=== PATIENT | male | born 1995 | race Caucasian/White ===

== ENCOUNTER 2016-07-24 22:38 | Emergency (ER) | payer OTHER ==
[2016-07-25 01:13] VITALS: BP 138/76
== END 2016-07-25 01:13 | disposition home or self-care (01) ==
LOC: ED 22:38
DX: M54.6 Pain in thoracic spine (principal); R20.2 Paresthesia of skin; R05 Cough
CPT/HCPCS: J7613; J7644

== ENCOUNTER 2016-08-16 00:26 | Emergency (ER) | payer OTHER ==
[2016-08-16 01:38] LABS: BASOPHIL % 0.5 % (0-2); PLATELET COUNT 282 x10^3mcL (130-400); RED CELL DISTRIBUTION WIDTH 12.8 % (11.5-14.5)
[2016-08-16 02:00] LABS: CALCIUM 8.9 mg/dL (8.5-10.1); CARBON DIOXIDE 26.7 mmol/L (21-32); CHLORIDE SERUM 102 mmol/L (98-107); GFR1 > 60 mL/min; GLUCOSE SERUM 107 mg/dL (74-106); POTASSIUM SERUM 3.4 mmol/L (3.5-5.1); SODIUM SERUM 139 mmol/L (136-145)
[2016-08-16 02:04] LABS: ALKALINE PHOSPHATASE 103 U/L (46-116); ALT/SGPT 34 U/L (16-63); AST/SGOT 20 U/L (15-37); BILIRUBIN TOTAL 0.3 mg/dL (0.20-1.00); LIPASE 261 IU/L (73-393); TOTAL PROTEIN, SERUM 8.2 g/dL (6.4-8.2)
[2016-08-16 02:59] LABS: AMPHETAMINE QUAL UR NONE DETECTED (NEG <=1000)
[2016-08-16 04:31] VITALS: BP 118/64
== END 2016-08-16 04:31 | disposition home or self-care (01) ==
LOC: ED 00:26
PROVIDERS: Emergency Medicine
DX: K21.9 Gastro-esophageal reflux disease without esophagitis (principal); E87.6 Hypokalemia
CPT/HCPCS: 80307; 83880; J2405; J3490; Q0092

== ENCOUNTER 2016-09-11 07:47 | Emergency (ER) | payer OTHER ==
[~2016-09-11] VITALS: Ht 170.2 cm; Wt 81.2 kg
[2016-09-11 08:23] LABS: BASOPHIL % 0.6 % (0-2); PLATELET COUNT 253 x10^3mcL (130-400); RED CELL DISTRIBUTION WIDTH 12.7 % (11.5-14.5)
[2016-09-11 08:32] LABS: CALCIUM 8.9 mg/dL (8.5-10.1); CARBON DIOXIDE 29.3 mmol/L (21-32); CHLORIDE SERUM 104 mmol/L (98-107); GFR1 > 60 mL/min; GLUCOSE SERUM 95 mg/dL (74-106); POTASSIUM SERUM 3.8 mmol/L (3.5-5.1); SODIUM SERUM 140 mmol/L (136-145)
[2016-09-11 08:36] LABS: ALBUMIN 3.9 g/dL (3.4-5.0); ALKALINE PHOSPHATASE 96 U/L (46-116); ALT/SGPT 31 U/L (16-63); AST/SGOT 20 U/L (15-37); BILIRUBIN TOTAL 0.25 mg/dL (0.20-1.00); LIPASE 242 IU/L (73-393); TOTAL PROTEIN, SERUM 8.1 g/dL (6.4-8.2)
[2016-09-11 09:32] VITALS: BP 107/64
== END 2016-09-11 09:32 | disposition home or self-care (01) ==
LOC: ED 07:47
PROVIDERS: Emergency Medicine
DX: R07.89 Other chest pain (principal); R11.10 Vomiting, unspecified
CPT/HCPCS: J2060; J2405; J7030; Q0092

== ENCOUNTER 2016-10-02 23:12 | Emergency (ER) | payer OTHER ==
[2016-10-03 00:11] LABS: BASOPHIL % 0.4 % (0-2); PLATELET COUNT 275 x10^3mcL (130-400); RED CELL DISTRIBUTION WIDTH 12.9 % (11.5-14.5)
[2016-10-03 00:25] LABS: CALCIUM 8.8 mg/dL (8.5-10.1); CARBON DIOXIDE 30.4 mmol/L (21-32); CHLORIDE SERUM 103 mmol/L (98-107); GFR1 > 60 mL/min; GLUCOSE SERUM 114 mg/dL (74-106); POTASSIUM SERUM 3.4 mmol/L (3.5-5.1); SODIUM SERUM 139 mmol/L (136-145)
[2016-10-03 00:30] LABS: ALBUMIN 3.9 g/dL (3.4-5.0); ALKALINE PHOSPHATASE 96 U/L (46-116); ALT/SGPT 56 U/L (16-63); AST/SGOT 24 U/L (15-37); BILIRUBIN TOTAL 0.2 mg/dL (0.20-1.00); CHOLESTEROL 165 mg/dL (<200); PHOSPHOROUS 3.2 mg/dL (2.5-4.9); TOTAL PROTEIN, SERUM 7.9 g/dL (6.4-8.2); URIC ACID 5.8 mg/dL (3.5-7.2)
[2016-10-03 00:31] LABS: HDL CHOLESTEROL 34 mg/dL (40-60)
[2016-10-03 01:53] VITALS: BP 118/72
== END 2016-10-02 23:26 | disposition home or self-care (01) ==
LOC: ED 23:12
PROVIDERS: Emergency Medicine
DX: F41.9 Anxiety disorder, unspecified (principal); K64.9 Unspecified hemorrhoids; K59.00 Constipation, unspecified; R07.89 Other chest pain
CPT/HCPCS: 36415; 83880; Q0092

== ENCOUNTER 2016-11-05 23:33 | Emergency (ER) | payer OTHER ==
[2016-11-06 00:13] VITALS: BP 121/66
== END 2016-11-06 00:13 | disposition home or self-care (01) ==
LOC: ED 23:33
DX: R10.9 Unspecified abdominal pain (principal); R11.10 Vomiting, unspecified; R19.7 Diarrhea, unspecified; K92.1 Melena

== ENCOUNTER 2016-12-06 22:54 | Emergency (ER) | payer OTHER ==
[2016-12-07 00:25] LABS: BASOPHIL % 0.3 % (0-2); PLATELET COUNT 243 x10^3mcL (130-400)
[2016-12-07 00:42] LABS: CALCIUM 9.1 mg/dL (8.5-10.1); CARBON DIOXIDE 28.8 mmol/L (21-32); CHLORIDE SERUM 101 mmol/L (98-107); GFR1 > 60 mL/min; GLUCOSE SERUM 87 mg/dL (74-106); POTASSIUM SERUM 3.5 mmol/L (3.5-5.1); SODIUM SERUM 135 mmol/L (136-145)
[2016-12-07 00:47] LABS: ALKALINE PHOSPHATASE 90 U/L (46-116); ALT/SGPT 26 U/L (16-63); AST/SGOT 19 U/L (15-37); BILIRUBIN TOTAL 0.2 mg/dL (0.20-1.00); TOTAL PROTEIN, SERUM 8.3 g/dL (6.4-8.2)
[2016-12-07 00:53] LABS: CK-MB < 0.5 ng/mL (0-3.6); CREATINE KINASE 90 U/L (39-308)
[2016-12-07 01:17] VITALS: BP 116/53
== END 2016-12-07 01:17 | disposition home or self-care (01) ==
LOC: ED 22:54
PROVIDERS: Emergency Medicine
DX: R55 Syncope and collapse (principal); R51 Headache; R10.9 Unspecified abdominal pain; R11.10 Vomiting, unspecified
CPT/HCPCS: 36415; Q0092; Q0162

== ENCOUNTER 2017-03-15 03:29 | Emergency (ER) | payer OTHER ==
[2017-03-15 04:46] LABS: BASOPHIL % 0.5 % (0-2); PLATELET COUNT 264 x10^3mcL (130-400); RED CELL DISTRIBUTION WIDTH 12.9 % (11.5-14.5)
[2017-03-15 05:00] LABS: CALCIUM 8.9 mg/dL (8.5-10.1); CARBON DIOXIDE 27.9 mmol/L (21-32); CHLORIDE SERUM 102 mmol/L (98-107); CREATININE SERUM 0.9 mg/dL (0.7-1.3); GFR1 > 60 mL/min; GLUCOSE SERUM 90 mg/dL (74-106); POTASSIUM SERUM 3.5 mmol/L (3.5-5.1); SODIUM SERUM 140 mmol/L (136-145)
[2017-03-15 05:05] LABS: ALBUMIN 3.7 g/dL (3.4-5.0); ALKALINE PHOSPHATASE 86 U/L (46-116); ALT/SGPT 27 U/L (16-63); AST/SGOT 22 U/L (15-37); BILIRUBIN TOTAL 0.4 mg/dL (0.20-1.00); LIPASE 255 IU/L (73-393); TOTAL PROTEIN, SERUM 7.9 g/dL (6.4-8.2)
[2017-03-15 05:11] LABS: microscopic required? NO
[2017-03-15 05:33] LABS: urine erythrocyte NEGATIVE (NEGATIVE)
[2017-03-15 06:45] VITALS: BP 121/73
== END 2017-03-15 06:45 | disposition home or self-care (01) ==
LOC: ED 03:29
PROVIDERS: Emergency Medicine
DX: R07.9 Chest pain, unspecified (principal); R10.12 Left upper quadrant pain; R11.10 Vomiting, unspecified
CPT/HCPCS: 36415

== ENCOUNTER 2017-04-29 23:05 | Emergency (ER) | payer OTHER ==
[~2017-04-29] VITALS: Ht 170.2 cm; Wt 82.5 kg
[2017-04-29 23:36] VITALS: Ht 170.2 cm; Wt 82.5 kg
[2017-04-30 01:08] VITALS: BP 109/68
== END 2017-04-30 01:08 | disposition home or self-care (01) ==
LOC: ED 23:05
DX: R07.89 Other chest pain (principal); F41.9 Anxiety disorder, unspecified
CPT/HCPCS: Q0092

== ENCOUNTER 2017-07-06 00:52 | Emergency (ER) | payer OTHER ==
[~2017-07-06] VITALS: Ht 170.2 cm; Wt 83.9 kg
[2017-07-06 00:54] VITALS: Ht 170.2 cm; Wt 83.9 kg
[2017-07-06 03:59] LABS: BASOPHIL % 0.5 % (0-2); PLATELET COUNT 255 x10^3mcL (130-400); RED CELL DISTRIBUTION WIDTH 13.2 % (11.5-14.5)
[2017-07-06 04:08] LABS: CALCIUM 8.8 mg/dL (8.5-10.1); CHLORIDE SERUM 104 mmol/L (98-107); CREATININE SERUM 0.9 mg/dL (0.7-1.3); GFR1 > 60 mL/min; GLUCOSE SERUM 96 mg/dL (74-106); POTASSIUM SERUM 3.5 mmol/L (3.5-5.1); SODIUM SERUM 137 mmol/L (136-145)
[2017-07-06 04:13] LABS: ALBUMIN 3.7 g/dL (3.4-5.0); ALKALINE PHOSPHATASE 87 U/L (46-116); ALT/SGPT 46 U/L (16-63); AST/SGOT 24 U/L (15-37); BILIRUBIN TOTAL 0.2 mg/dL (0.20-1.00); MAGNESIUM 2.1 mg/dL (1.8-2.4); TOTAL PROTEIN, SERUM 7.6 g/dL (6.4-8.2)
[2017-07-06 04:47] VITALS: BP 121/89
== END 2017-07-06 04:47 | disposition home or self-care (01) ==
LOC: ED 00:52
PROVIDERS: Emergency Medicine
DX: R07.89 Other chest pain (principal); M62.838 Other muscle spasm
CPT/HCPCS: 36415

== ENCOUNTER 2017-07-29 16:09 | Emergency (ER) | payer OTHER ==
[~2017-07-29] VITALS: Ht 170.2 cm; Wt 83.9 kg
[2017-07-29 16:17] VITALS: Ht 170.2 cm; Wt 83.9 kg
[2017-07-29 17:00] LABS: BASOPHIL % 0.3 % (0-2); PLATELET COUNT 246 x10^3mcL (130-400)
[2017-07-29 17:14] LABS: AMPHETAMINE QUAL UR NONE DETECTED (NEG <=1000)
[2017-07-29 18:20] LABS: CALCIUM 8.7 mg/dL (8.5-10.1); CARBON DIOXIDE 29.8 mmol/L (21-32); CHLORIDE SERUM 102 mmol/L (98-107); CREATININE SERUM 0.9 mg/dL (0.7-1.3); GFR1 > 60 mL/min; GLUCOSE SERUM 77 mg/dL (74-106); POTASSIUM SERUM 3.7 mmol/L (3.5-5.1); SODIUM SERUM 138 mmol/L (136-145)
[2017-07-29 18:25] LABS: ALBUMIN 3.9 g/dL (3.4-5.0); ALKALINE PHOSPHATASE 87 U/L (46-116); ALT/SGPT 49 U/L (16-63); AST/SGOT 29 U/L (15-37); BILIRUBIN TOTAL 0.3 mg/dL (0.20-1.00); CHOLESTEROL 167 mg/dL (<200)
[2017-07-29 19:30] VITALS: BP 125/77
== END 2017-07-29 19:30 | disposition home or self-care (01) ==
LOC: ED 16:09
PROVIDERS: Specialist
DX: R41.82 Altered mental status, unspecified (principal); R51 Headache; R11.10 Vomiting, unspecified
CPT/HCPCS: 36415; 83880; G0480

== ENCOUNTER 2017-11-15 18:18 | Emergency (ER) | payer OTHER ==
[~2017-11-15] VITALS: Ht 170.2 cm; Wt 79.4 kg
[2017-11-15 18:37] VITALS: Ht 170.2 cm; Wt 79.4 kg
[2017-11-15 20:24] VITALS: BP 124/64
== END 2017-11-15 20:24 | disposition home or self-care (01) ==
LOC: ED 18:18
DX: K58.0 Irritable bowel syndrome with diarrhea (principal); K21.9 Gastro-esophageal reflux disease without esophagitis; R03.0 Elevated blood-pressure reading, without diagnosis of hypertension

== ENCOUNTER 2019-09-21 00:15 | Emergency (ER) | payer OTHER ==
[~2019-09-21] VITALS: Ht 172.7 cm; Wt 90.0 kg
[2019-09-21 00:27] VITALS: Ht 172.7 cm; Wt 90.0 kg
[2019-09-21 01:28] LABS: AMPHETAMINE QUAL UR NONE DETECTED (See below)
[2019-09-21 01:43] LABS: CALCIUM 8.8 mg/dL (8.5-10.1); CARBON DIOXIDE 30.2 mmol/L (21-32); CHLORIDE SERUM 103 mmol/L (98-107); GFR1 > 60 mL/min; GLUCOSE SERUM 89 mg/dL (74-106); POTASSIUM SERUM 3.5 mmol/L (3.5-5.1); SODIUM SERUM 140 mmol/L (136-145)
[2019-09-21 01:48] LABS: ALBUMIN 3.7 g/dL (3.4-5.0); ALKALINE PHOSPHATASE 81 U/L (46-116); ALT/SGPT 40 U/L (16-63); AST/SGOT 18 U/L (15-37); CHOLESTEROL 160 mg/dL (<200); LIPASE 238 IU/L (73-393); TOTAL PROTEIN, SERUM 7.7 g/dL (6.4-8.2)
[2019-09-21 01:56] LABS: CHOLESTEROL/HDL RATIO 5.7; HDL CHOLESTEROL 28 mg/dL (40-60); TRIGLYCERIDES 251 mg/dL (<150)
[2019-09-21 02:04] LABS: BASOPHIL % 0.2 % (0-2); PLATELET COUNT 264 x10^3mcL (130-400); RED CELL DISTRIBUTION WIDTH 13.3 % (11.5-14.5)
[2019-09-21 02:56] VITALS: BP 116/70
== END 2019-09-21 02:56 | disposition home or self-care (01) ==
LOC: ED 00:15
PROVIDERS: Specialist
DX: R07.89 Other chest pain (principal); R11.10 Vomiting, unspecified
CPT/HCPCS: 36415; 83880; Q0092